=== PATIENT | male | born 1940 | race Caucasian/White ===

== ENCOUNTER 2019-10-08 07:50 | Outpatient (CLI) | payer OTHER, SELFPAY ==
[2019-10-08 12:39] LABS: Testosterone Total 15.6 ng/dL (193-740)
[2019-10-08 12:40] LABS: Prostate Specific Antigen 0.35 ng/mL (0-4)
== END 2019-10-08 07:51 | disposition home or self-care (01) ==
PROVIDERS: Family Provider Internal Medicine; Visit Provider Internal Medicine Hematology & Oncology
DX: C61 Malignant neoplasm of prostate (principal)
CPT/HCPCS: 84153; 84403

== ENCOUNTER 2019-10-11 14:26 | Outpatient (CLI) | payer OTHER, SELFPAY ==
--- NOTE | 2019-10-11 17:09 | ONC FU_ITS ---
Dr. Ayala follow up note Patient: Frank Olmos Unit #: [id number]: 1940 Dicatated By: Manda Ayala M.D.Date of Visit:Oct 11, 2019 Onc Med Follow-up/Prog Note History of Present Illness: Mr. 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 Patient had excellent response to the treatment with normalization of PSA. As per patient during follow-up with his urologist Dr. Colvin in [place], he was informed about progressive PSA and on 08/24/2019 his PSA was 1.06 compared to subzero before. Patient denies any new bony pains except chronic bilateral knee pain and as per patient he was advised knee replacement in the past. Otherwise no abdominal pain no peripheral lymphadenopathy, appetite is good no urinary signs symptoms. No hematuria or dysuria. Weight is stable. Overall, enjoying his life without any significant symptoms. Patient denies smoking or alcohol use. Came for follow-up, denies any specific complaints, no fever or chills, no nausea vomiting, no hematuria or dysuria, new no bony pains. Patient is trying herbal treatment for his prostrate cancer. Medications: Acetaminophen 2 Tablet (of 325 mg) Tablet Oral four times a day PRN, Antiseptic Skin Cleanser Solution Topical daily, Budesonide-Formoterol Fumarate 2 puff(s) (of 160-4.5 mcg/act) Aerosol Inhalation b.i.d., Carvedilol 1 Tablet (of 25 mg) Oral b.i.d., Cetirizine HCl 1 Tablet (of 10 mg) Oral daily, Colchicine 0.5 Tablet (of 0.6 mg) Oral daily, Finasteride 1 Tablet (of 5 mg) Oral daily, Fluticasone Propionate 2 spray(s) (of 50 mcg/act) Suspension Nasal daily, GlipiZIDE 1.5 Tablet (of 10 mg) Oral b.i.d., Hydrocodone-Acetaminophen 1 - 2 Tablet (of 5-325 mg) Oral q 6 hours PRN, Insulin Glargine 25 Units (of 100 Units/mL) Subcutaneous daily, Losartan Potassium 0.5 Tablet (of 50 mg) Oral daily, Melatonin (3 mg) Capsule Oral Take as Directed, MetFORMIN HCl 1 Tablet (of 1000 mg) Oral b.i.d., Mirtazapine 1 Tablet (of 30 mg) Oral daily, Montelukast Sodium 1 Tablet (of 10 mg) Oral daily, Pravastatin Sodium 0.5 Tablet (of 40 mg) Oral daily, Tamsulosin HCl 2 Capsule (of 0.4 mg) Oral daily Allergies: Chicken, [place], Diary Products, Iodine (Seafood), and PCN. Review of Systems: Constitutional - Appetite is good and weight is stable. No fever, chills, hot flashes, or night sweats. Energy level is fair, ENMT - No sinus congestion/drainage. No mouth sores. No sore throat or difficulty swallowing, Hematologic/Lymphatic - No abnormal bruising or bleeding, Respiratory - No shortness of breath. No cough. No pleuritic pain or hemoptysis, Cardiovascular - No angina pain. No palpitations, Gastrointestinal - No nausea or vomiting. No heartburn or acid reflux. No diarrhea or constipation. No blood in the stool or black stools, Genitourinary (M) - No dysuria or hematuria. No urinary frequency. No urgency or incontinence, Musculoskeletal - No joint or bone pain, Neurologic - No headache or dizziness. No numbness/paresthesias or other focal neurologic symptoms, Psychiatric - No anxiety or depression. No insomnia. Vital Signs: Performed on Oct 11, 2019 15:30 Height - 75.00 in Weight - 242.8 lbs (HIGH) BSA - 2.38 sq.m BMI - 30.35 (HIGH) Temperature - 97.5 F (LOW) Pulse - 85 /min Respiration - 17 /min BP - 143/73 mm(hg) (HIGH) O2 Sat - 93 % (LOW) Pain - 0 Performance Status: 1 - No physically strenuous activity, but ambulatory and able to carry out light or sedentary work (e.g. office work, light house work). (ECOG) Physical Examination: ENMT - No oral exudates, ulcers, masses, thrush or mucositis. Oropharynx clear. Tongue normal, Respiratory - Lungs are clear to auscultation without rhonchi or wheezing, Cardiovascular - Regular rate and rhythm of heart, Abdomen - Non-tender, non-distended, Good bowel sounds. No guarding or rebound tenderness. No pulsatile masses, Extremities - no edema. Lab/Imaging: Test performed on Oct 08, 2019 07:50 Testosterone 15.6 ng/dL PSA 0.35 ng/mL Test performed on Sep 07, 2019 12:14 Testosterone, Total 10.4 ng/dL Impression: Progressive PSA labs checked on 08/24/[address] Colvin's office showed PSA was 1.06 compared to subzero prior to that during follow-up. Patient has history of prostrate cancer, high risk, with high [place] score 4+5 in 6 cores, tumor involves 70-80% of core volume, with perineural invasion per biopsy done on 09/24/2016 Patient was treated with radiation concurrent with ADT starting from 04/14/2017 through 05/29/2017. And continued with adjuvant ADT till July 2018 Plan: Discussed with patient regarding his labs PSA 0.35 compared to 1.08 on 09/07/2019 testosterone 15.6 Clinically, patient is doing well, no new signs symptoms suggestive of disease progression today's lab shows significant drop in his PSA level e.g. 0.25 compared to 1.08 on 09/07/2019. Patient said he is trying herbal treatment on his own. And tolerating well. At this point he is requesting observation alone. He will return to clinic in 2 months at that time we will check his PSA level if it continued to drop or stay stable we will continue monitor. Signed By: Manda Ayala M.D. <<Signature on File>>
== END 2019-10-11 14:27 | disposition home or self-care (01) ==
LOC: ONCMED 14:29
PROVIDERS: Family Provider Internal Medicine; PCP Internal Medicine; Visit Provider Internal Medicine Hematology & Oncology
DX: C61 Malignant neoplasm of prostate (principal); Z79.891 Long term (current) use of opiate analgesic; Z92.3 Personal history of irradiation; Z92.23 Personal history of estrogen therapy; Z92.21 Personal history of antineoplastic chemotherapy
CPT/HCPCS: G0463

== ENCOUNTER 2019-12-02 09:20 | Outpatient (CLI) | payer OTHER, SELFPAY ==
[2019-12-02 12:24] LABS: Prostate Specific Antigen 0.53 ng/mL (0-4)
== END 2019-12-02 09:21 | disposition home or self-care (01) ==
LOC: ONCMED 12:10
PROVIDERS: Family Provider Internal Medicine; PCP Internal Medicine; Visit Provider Internal Medicine Hematology & Oncology
DX: C61 Malignant neoplasm of prostate (principal)
CPT/HCPCS: 84153

== ENCOUNTER 2019-12-06 13:49 | Outpatient (CLI) | payer OTHER, SELFPAY ==
--- NOTE | 2019-12-06 14:32 | ONC FU_ITS ---
Dr. Ayala follow up note Patient: Frank Olmos Unit #: [id number]: 1940 Dicatated By: Manda Ayala M.D.Date of Visit:Dec 06, 2019 Onc Med Follow-up/Prog Note History of Present Illness: Mr. 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 Patient had excellent response to the treatment with normalization of PSA. As per patient during follow-up with his urologist Dr. Colvin in [place], he was informed about progressive PSA and on 08/24/2019 his PSA was 1.06 compared to subzero before. now on herbel therapy for prostate cancer Patient denies any new bony pains except chronic bilateral knee pain and as per patient he was advised knee replacement in the past. Otherwise no abdominal pain no peripheral lymphadenopathy, appetite is good no urinary signs symptoms. No hematuria or dysuria. Weight is stable. Overall, enjoying his life without any significant symptoms. Patient denies smoking or alcohol use. Came for follow-up, denies any specific complaints, no nausea no vomiting no fever no chills no dysuria or hematuria. Medications: Acetaminophen 2 Tablet (of 325 mg) Tablet Oral four times a day PRN, Antiseptic Skin Cleanser Solution Topical daily, Budesonide-Formoterol Fumarate 2 puff(s) (of 160-4.5 mcg/act) Aerosol Inhalation b.i.d., Carvedilol 1 Tablet (of 25 mg) Oral b.i.d., Cetirizine HCl 1 Tablet (of 10 mg) Oral daily, Colchicine 0.5 Tablet (of 0.6 mg) Oral daily, Finasteride 1 Tablet (of 5 mg) Oral daily, Fluticasone Propionate 2 spray(s) (of 50 mcg/act) Suspension Nasal daily, GlipiZIDE 1.5 Tablet (of 10 mg) Oral b.i.d., Hydrocodone-Acetaminophen 1 - 2 Tablet (of 5-325 mg) Oral q 6 hours PRN, Insulin Glargine 25 Units (of 100 Units/mL) Subcutaneous daily, Losartan Potassium 0.5 Tablet (of 50 mg) Oral daily, Melatonin (3 mg) Capsule Oral Take as Directed, MetFORMIN HCl 1 Tablet (of 1000 mg) Oral b.i.d., Mirtazapine 1 Tablet (of 30 mg) Oral daily, Montelukast Sodium 1 Tablet (of 10 mg) Oral daily, Pravastatin Sodium 0.5 Tablet (of 40 mg) Oral daily, Tamsulosin HCl 2 Capsule (of 0.4 mg) Oral daily Allergies: Chicken, [place], Diary Products, Iodine (Seafood), and PCN. Review of Systems: Constitutional - Appetite is good and weight is stable. No fever, chills, hot flashes, or night sweats. Energy level is fair, ENMT - No sinus congestion/drainage. No mouth sores. No sore throat or difficulty swallowing, Hematologic/Lymphatic - No abnormal bruising or bleeding, Respiratory - No shortness of breath. No cough. No pleuritic pain or hemoptysis, Cardiovascular - No angina pain. No palpitations, Gastrointestinal - No nausea or vomiting. No heartburn or acid reflux. No diarrhea or constipation. No blood in the stool or black stools, Genitourinary (M) - No dysuria or hematuria. No urinary frequency. No urgency or incontinence, Musculoskeletal - No joint or bone pain, Neurologic - No headache or dizziness. No numbness/paresthesias or other focal neurologic symptoms, Psychiatric - No anxiety or depression. No insomnia. Vital Signs: Performed on Dec 06, 2019 14:07 Height - 75.00 in Weight - 239.8 lbs (LOW) BSA - 2.37 sq.m BMI - 29.97 Temperature - 98.0 F (LOW) Pulse - 82 /min Respiration - 18 /min BP - 134/77 mm(hg) O2 Sat - 94 % (LOW) Pain - 5 Performance Status: 0 - Fully active, able to carry on all predisease activities without restrictions. (ECOG) Physical Examination: ENMT - No oral exudates, ulcers, masses, thrush or mucositis. Oropharynx clear. Tongue normal, Respiratory - Lungs are clear to auscultation without rhonchi or wheezing, Cardiovascular - Regular rate and rhythm of heart, Abdomen - Non-tender, non-distended, Good bowel sounds. No guarding or rebound tenderness. No pulsatile masses, Extremities - no edema. Lab/Imaging: Test performed on Oct 08, 2019 07:50 Testosterone 15.6 ng/dL PSA 0.35 ng/mL Test performed on Sep 07, 2019 12:14 Testosterone, Total 10.4 ng/dL Impression: Progressive PSA labs checked on 08/24/[address] Colvin's office showed PSA was 1.06 compared to subzero prior to that during follow-up. Patient has history of prostrate cancer, high risk, with high [place] score 4+5 in 6 cores, tumor involves 70-80% of core volume, with perineural invasion per biopsy done on 09/24/2016 Patient was treated with radiation concurrent with ADT starting from 04/14/2017 through 05/29/2017. And continued with adjuvant ADT till July 2018 Plan: Discussed with patient regarding his labs PSA 0.53 compared to 0.35 on 10/08/2019 Clinically, patient doing well with no signs symptoms suggestive of recurrence/progression of disease, his follow-up lab showed increase in PSA level now 0.53 compared to 0.35 on 10/08/2019 and 1.08 on 09/07/2019 At this point we'll continue to monitor patient has no new symptoms and will repeat his PSA in 2 months to establish the trend, and calculate the doubling time if continued to go up we'll consider further workup, patient is planning to move close to his childrens in [place], as his was recently diagnosed with dementia. Signed By: Manda Ayala M.D. <<Signature on File>>
== END 2019-12-06 13:50 | disposition home or self-care (01) ==
PROVIDERS: Family Provider Internal Medicine; PCP Internal Medicine; Visit Provider Internal Medicine Hematology & Oncology
DX: C61 Malignant neoplasm of prostate (principal); R97.21 Rising PSA following treatment for malignant neoplasm of prostate; G89.29 Other chronic pain; M25.562 Pain in left knee; M25.561 Pain in right knee; Z79.891 Long term (current) use of opiate analgesic; Z79.899 Other long term (current) drug therapy; Z79.4 Long term (current) use of insulin; Z92.3 Personal history of irradiation; Z92.23 Personal history of estrogen therapy
CPT/HCPCS: G0463